=== PATIENT | female | born 1995 ===

== ENCOUNTER 2021-07-23 21:31 | Outpatient (CLI) | payer OTHER ==
--- NOTE | 2021-07-23 22:00 | NUR ---
PT TO UNIT AMBULATORY WITH FRIEND WITH COMPLIANTS OF ABDOMINAL PAIN AND PELVIC PRESSURE. PT IS SEEN AT [facility], STATES SHE WAS SEEN THERE EARLY TODAY BUT WANTED A SECOND OPINION. STATES THAT SHE WAS TOLD SHE WAS HAVING IRREGULAR CONTRACTIONS AND THAT NO CERVICAL EXAM WAS PERFORMED. STATES GAYE OF 09/09/21, 33.1 WEEKS, 1ST , DENIES ANY /MEDICAL HX. VS WNL, EFMX2 APPLIED AND SVE OF CLOSED.
[2021-07-23 22:30] VITALS: BP 101/61; PULSE 89; TEMP 98.4
[2021-07-23] MEDS ORDERED: PRENATAL TABLET PO (22:54)
--- NOTE | 2021-07-23 23:30 | NUR ---
2312- PT DENIES FEELING CONTRACTIONS.MONITORING DC'D, PT MAY DC HOME PER DR. AUSTIN. PT ASKS HOW SHE CAN DELIVERY HERE IF SHE IS AN [facility] PT. EDUCATED PT THAT SHE NEEDS TO CONTACT [facility] TO TRANSFER CARE IF SHE WISHES TO DELIVER AT THIS HOSPITAL. PHONE NUMBER TO [facility] PROVIDED. 2330- DISCHARGE INSTRUCTIONS REVIEWED WITH PT, QUESTIONS ENCOURAGED AND ANSWERED. UNDERSTANDING VERBALIZED. PT OFF UNIT AMBULATORY WITH FRIEND.
== END 2021-07-23 23:30 | disposition home or self-care (01) ==
LOC: LDRO 21:31 → COL.ER 21:31 → EDSTATUS 21:55 → LDR 22:45 → LDRO 23:30
DX: O26.893 Other specified pregnancy related conditions, third trimester (principal); R10.9 Unspecified abdominal pain; R10.2 Pelvic and perineal pain; Z3A.33 33 weeks gestation of pregnancy
CPT/HCPCS: OP